=== PATIENT | male | born 1990 | race American Indian/Alaskan Native ===

== ENCOUNTER 2022-08-05 10:08 | Emergency (ER) | payer BC ==
[2022-08-05] MEDS ORDERED: Aspirin 81 MG Tab.Chew PO ONE (10:12)
[2022-08-05] MEDS ORDERED: Sodium Chloride 0.9% 1,000 ML IV ONE (10:12)
[2022-08-05] MEDS ORDERED: LORazepam 2 MG/ML SDV IVPUSH ONE (10:27)
[2022-08-05] MEDS ORDERED: Morphine 4 MG/ML Syringe IVPUSH ONE (11:12)
[2022-08-05 11:14] LABS: BLOOD UREA NITROGEN,BUN 15 mg/dL (7.0-18.0); CARBON DIOXIDE,CO2 22.6 mmol/L (21.0-32.0); CHLORIDE,CL 102 mmol/L (98-107); GLUCOSE RANDOM 171 mg/dL (74-106); POTASSIUM,K 4.1 mmol/L (3.5-5.1); SODIUM,NA 138 mmol/L (136-148)
[2022-08-05 11:23] LABS: ESTIMATED GFR 118 mL/min (>60)
[2022-08-05 12:50] LABS: LIPASE 157 U/L (73-393)
[2022-08-05 13:25] LABS: CORONAVIRUS COVID-19 NAA NEGATIVE (NEGATIVE); INFLUENZA A NAA NEGATIVE (NEGATIVE); INFLUENZA B NAA NEGATIVE (NEGATIVE)
[2022-08-05 13:36] VITALS: BP 122/71; PULSE 74
== END 2022-08-05 13:55 | disposition home or self-care (01) ==
LOC: MW.ED 10:08
DX: R07.89 Other chest pain (principal); R06.02 Shortness of breath; E11.9 Type 2 diabetes mellitus without complications; Z20.822 Contact with and (suspected) exposure to COVID-19
CPT/HCPCS: 0240U; 36415; 71045; 80053; 83690; 84484; 85025; 85379; 85610; 85730; 86140; 93005; 96361; 96374; 96375; 99285; A9270; J2060; J2270; J7030

== ENCOUNTER 2022-09-14 07:13 | Emergency (ER) | payer BC ==
[2022-09-14] MEDS ORDERED: Sodium Chloride 0.9% 10 ML Syringe FLUSH PRN (07:26)
[2022-09-14] MEDS ORDERED: Sodium Chloride 0.9% 2.5 ML Syringe FLUSH PRN (07:26)
[2022-09-14] MEDS ORDERED: Ondansetron 4 MG/2 ML SDV IVPUSH ONE (07:26)
[2022-09-14] MEDS ORDERED: Morphine 4 MG/ML Syringe IVPUSH ONE (07:26)
[2022-09-14 07:52] LABS: CARBON DIOXIDE,CO2 26.4 mmol/L (21.0-32.0); POTASSIUM,K 3.9 mmol/L (3.5-5.1)
[2022-09-14] MEDS ORDERED: HYDROmorphone 1 MG/ML Syringe IVPUSH ONE (08:04)
[2022-09-14] MEDS ORDERED: Iopamidol 755 MG/ML 500 ML Multipack Bottle IVPUSH STA (08:41)
[2022-09-14] MEDS ORDERED: Ketorolac 30 MG/ML SDV IVPUSH ONE (10:59)
[2022-09-14 11:17] VITALS: BP 140/89; PULSE 85
== END 2022-09-14 11:18 | disposition home or self-care (01) ==
LOC: MW.ED 07:13
DX: R07.9 Chest pain, unspecified (principal); I10 Essential (primary) hypertension; E11.9 Type 2 diabetes mellitus without complications; Z79.82 Long term (current) use of aspirin; Z79.899 Other long term (current) drug therapy
CPT/HCPCS: 36415; 70450; 70496; 70498; 71045; 80053; 84484; 85025; 93005; 96374; 96375; 99285; J1170; J1885; J2270; J2405; J3490; Q9967

== ENCOUNTER 2023-03-29 15:21 | Emergency (ER) | payer BC, OTHER ==
[2023-03-29] MEDS ORDERED: Aluminum Hydroxide/Magnesium Hydroxide/Simethicone XS Susp 30 ML Cup PO ONE (16:03)
[2023-03-29] MEDS ORDERED: Famotidine 20 MG/2 ML SDV IVPUSH ONE (16:03)
[2023-03-29] MEDS ORDERED: Pantoprazole 40 MG in Sodium Chloride 0.9% 10 ML IVPUSH ONE (16:03)
[2023-03-29 16:08] LABS: BASOPHILS PERCENT AUTO 0.4 % (0.0-1.5); EOSINOPHILS ABSOLUTE AUTO 0.2 K/uL (0.0-0.7); HEMATOCRIT 44.9 % (38.0-50.0); HEMOGLOBIN 15.6 g/dL (13.0-17.0); LYMPHOCYTES PERCENT AUTO 25.1 % (16.0-40.0); MEAN CORPUSCULAR HEMOGLOBIN 28.4 pg (27.0-32.0); MEAN CORPUSCULAR HGB CONC 34.7 g/dL (31.0-37.0); MEAN CORPUSCULAR VOLUME 81.6 fL (80.0-98.0); MONOCYTES ABSOLUTE AUTO 0.6 K/uL (0.0-0.8); MONOCYTES PERCENT AUTO 6.9 % (0.0-15.0); NEUTROPHILS ABSOLUTE AUTO 5.4 K/uL (1.4-5.7); NEUTROPHILS PERCENT AUTO 65.6 % (48.0-80.0); NRBC ABSOLUTE 0 K/uL; PLATELET COUNT,PLT 214 K/uL (150-400); WHITE BLOOD CELL COUNT,WBC 8.14 K/uL (4.0-11.0)
[2023-03-29 16:44] LABS: ALANINE AMINOTRANSFERASE,ALT 43 IU/L (14-63); ALBUMIN 3.6 g/dL (3.4-5.0); ALKALINE PHOSPHATASE 86 U/L (46-116); ASPARTATE AMNIOTRANSFERASE,AST 14 IU/L (15-37); BLOOD UREA NITROGEN,BUN 18 mg/dL (7.0-18.0); CARBON DIOXIDE,CO2 25.4 mmol/L (21.0-32.0); CHLORIDE,CL 103 mmol/L (98-107); CREATININE 0.9 mg/dL (0.8-1.3); EST CRCL DRUG DOSING (CG) 116.11 mL/min; GLUCOSE RANDOM 280 mg/dL (74-106); LIPASE 44 U/L (16-77); POTASSIUM,K 3.7 mmol/L (3.5-5.1); PROTEIN TOTAL,TP 7.3 g/dL (6.4-8.2); SODIUM,NA 137 mmol/L (136-148)
[2023-03-29 16:45] LABS: ESTIMATED GFR 118 mL/min (>60)
[2023-03-29 19:16] VITALS: BP 139/89; PULSE 87
== END 2023-03-29 17:22 | disposition home or self-care (01) ==
LOC: MW.ED 15:21
DX: R07.9 Chest pain, unspecified (principal); I10 Essential (primary) hypertension; E11.9 Type 2 diabetes mellitus without complications; Z79.899 Other long term (current) drug therapy
CPT/HCPCS: 36415; 71045; 80053; 83690; 84484; 85025; 85379; 93005; 96374; 96375; 99285; A9270; C9113; J3490; 93010; 99284

== ENCOUNTER 2023-04-02 07:48 | Emergency (ER) | payer BC, OTHER ==
[2023-04-02] MEDS ORDERED: Aspirin 81 MG Tab.Chew PO ONE (07:56)
[2023-04-02] MEDS ORDERED: Ondansetron 4 MG/2 ML SDV IVPUSH ONE (07:56)
[2023-04-02] MEDS ORDERED: Sodium Chloride 0.9% 2.5 ML Syringe FLUSH PRN (07:56)
[2023-04-02] MEDS ORDERED: Sodium Chloride 0.9% 10 ML Syringe FLUSH PRN (07:56)
[2023-04-02] MEDS: Nitroglycerin 0.4 MG Tab.SL SL PRN ×2 (08:07→08:16)
[2023-04-02 08:24] LABS: BASOPHILS PERCENT AUTO 0.3 % (0.0-1.5); EOSINOPHILS ABSOLUTE AUTO 0.2 K/uL (0.0-0.7); EOSINOPHILS PERCENT AUTO 3.2 % (0.0-7.0); HEMATOCRIT 46.9 % (38.0-50.0); HEMOGLOBIN 16.8 g/dL (13.0-17.0); LYMPHOCYTES PERCENT AUTO 28.3 % (16.0-40.0); MEAN CORPUSCULAR HEMOGLOBIN 29.4 pg (27.0-32.0); MEAN CORPUSCULAR HGB CONC 35.8 g/dL (31.0-37.0); MONOCYTES ABSOLUTE AUTO 0.6 K/uL (0.0-0.8); MONOCYTES PERCENT AUTO 7.8 % (0.0-15.0); NEUTROPHILS ABSOLUTE AUTO 4.4 K/uL (1.4-5.7); NEUTROPHILS PERCENT AUTO 60.4 % (48.0-80.0); NRBC ABSOLUTE 0 K/uL; PLATELET COUNT,PLT 208 K/uL (150-400); RED BLOOD CELL COUNT 5.72 M/uL (4.50-5.90); WHITE BLOOD CELL COUNT,WBC 7.22 K/uL (4.0-11.0)
[2023-04-02 08:35] LABS: D-DIMER QUANTITATIVE 0.22 mg/L FEU (0.00-0.50); INR 0.93 (0.86-1.11); PTT,PARTIAL THROMBOPLSTIN TIME 26.5 SEC (23.9-30.7)
[2023-04-02 08:55] LABS: A/G RATIO 0.9 (0.9-1.6); ALANINE AMINOTRANSFERASE,ALT 63 IU/L (14-63); ALBUMIN 3.7 g/dL (3.4-5.0); ALKALINE PHOSPHATASE 94 U/L (46-116); ASPARTATE AMNIOTRANSFERASE,AST 20 IU/L (15-37); BLOOD UREA NITROGEN,BUN 15 mg/dL (7.0-18.0); CALCIUM 9.5 mg/dL (8.5-10.1); CARBON DIOXIDE,CO2 25.4 mmol/L (21.0-32.0); CHLORIDE,CL 103 mmol/L (98-107); GLUCOSE RANDOM 227 mg/dL (74-106); LIPASE 37 U/L (16-77); MAGNESIUM 1.7 mg/dL (1.8-2.4); POTASSIUM,K 4.2 mmol/L (3.5-5.1); PROTEIN TOTAL,TP 7.6 g/dL (6.4-8.2); SODIUM,NA 139 mmol/L (136-148)
[2023-04-02 08:59] LABS: ESTIMATED GFR 104 mL/min (>60)
[2023-04-02 09:59] LABS: CORONAVIRUS COVID-19 NAA NEGATIVE (NEGATIVE); INFLUENZA A NAA NEGATIVE (NEGATIVE); INFLUENZA B NAA NEGATIVE (NEGATIVE); RESPIRATORY SYNCYTIAL VIR NAA NEGATIVE (NEGATIVE)
[2023-04-02] MEDS ORDERED: Acetaminophen 500 MG Tab PO ONE (10:51)
[2023-04-02 11:56] VITALS: BP 113/64; PULSE 73
== END 2023-04-02 11:55 | disposition home or self-care (01) ==
LOC: MW.ED 07:48
DX: R07.9 Chest pain, unspecified (principal); I10 Essential (primary) hypertension; E11.9 Type 2 diabetes mellitus without complications; M54.9 Dorsalgia, unspecified; E78.00 Pure hypercholesterolemia, unspecified; Z72.0 Tobacco use; Z79.899 Other long term (current) drug therapy; Z20.822 Contact with and (suspected) exposure to COVID-19
CPT/HCPCS: 0241U; 36415; 71046; 80053; 83690; 83735; 83880; 84484; 85025; 85379; 85610; 85730; 93005; 96374; 99285; A9270; J2405; J3490; 93010; 99284

== ENCOUNTER 2024-02-25 07:56 | Emergency (ER) | payer BC, OTHER ==
[2024-02-25 10:10] VITALS: BP 127/82; PULSE 74
== END 2024-02-25 08:55 | disposition home or self-care (01) ==
LOC: MW.ED 07:56
DX: G51.0 Bell's palsy (principal); I10 Essential (primary) hypertension; E11.9 Type 2 diabetes mellitus without complications; Z79.899 Other long term (current) drug therapy; Z75.8 Other problems related to medical facilities and other health care
CPT/HCPCS: 99284

== ENCOUNTER 2024-06-07 07:43 | Emergency (ER) | payer BC, OTHER ==
[2024-06-07] MEDS: Albuterol/Ipratropium 3.0-0.5 MG/3 ML Neb Soln NEB ONE ×2 (07:48→08:02)
[2024-06-07] MEDS: Albuterol/Ipratropium 3.0-0.5 MG/3 ML Neb Soln ONE (08:02)
[2024-06-07] MEDS: Sodium Chloride 0.9% 10 ML Syringe FLUSH PRN (08:05)
[2024-06-07] MEDS: Sodium Chloride 0.9% 2.5 ML Syringe FLUSH PRN (08:05)
[2024-06-07] MEDS: methylPREDNISolone Sodium Succinate 125 MG/2 ML SDV IVPUSH ONE (08:05)
[2024-06-07 08:11] LABS: BASOPHILS ABSOLUTE AUTO 0.03 K/uL (0.00-0.20); BASOPHILS PERCENT AUTO 0.4 % (0.0-1.0); EOSINOPHILS ABSOLUTE AUTO 0.15 K/uL (0.00-0.45); EOSINOPHILS PERCENT AUTO 1.8 % (0.0-6.0); HEMATOCRIT 47.8 % (42.0-52.0); HEMOGLOBIN 16.4 g/dL (14.0-18.0); IMMATURE GRAN ABSOLUTE AUTO 0.09 K/uL (0.00-0.05); IMMATURE GRAN PERCENT AUTO 1.1 % (0.0-0.4); LYMPHOCYTES ABSOLUTE AUTO 2.72 K/uL (1.00-4.80); LYMPHOCYTES PERCENT AUTO 33.5 % (24.0-44.0); MEAN CORPUSCULAR HEMOGLOBIN 28.2 pg (28.0-32.0); MEAN CORPUSCULAR HGB CONC 34.3 g/dL (32.0-36.0); MEAN CORPUSCULAR VOLUME 82.1 fL (83.0-99.0); MEAN PLATELET VOLUME 11.1 fL (9.4-12.4); MONOCYTES ABSOLUTE AUTO 0.61 K/uL (0.00-0.80); MONOCYTES PERCENT AUTO 7.5 % (0.0-8.0); NEUTROPHILS ABSOLUTE AUTO 4.51 K/uL (1.80-7.70); NEUTROPHILS PERCENT AUTO 55.7 % (41.0-71.0); PLATELET COUNT,PLT 223 K/uL (150-400); RED BLOOD CELL COUNT 5.82 M/uL (4.52-5.90); WHITE BLOOD CELL COUNT,WBC 8.11 K/uL (3.9-11.3)
[2024-06-07 08:25] LABS: INR 0.95 (0.86-1.11)
[2024-06-07 08:30] LABS: ALBUMIN 3.8 g/dL (3.4-5.0); BILIRUBIN TOTAL 1.1 mg/dL (0.2-1.0); CALCIUM 9.2 mg/dL (8.5-10.1); CARBON DIOXIDE,CO2 23.3 mmol/L (21.0-32.0); CREATININE 0.9 mg/dL (0.8-1.3); POTASSIUM,K 4.3 mmol/L (3.5-5.1); PROTEIN TOTAL,TP 7.6 g/dL (6.4-8.2)
[2024-06-07 09:02] LABS: CORONAVIRUS COVID-19 NAA NEGATIVE (NEGATIVE); INFLUENZA A NAA NEGATIVE (NEGATIVE); INFLUENZA B NAA NEGATIVE (NEGATIVE); RESPIRATORY SYNCYTIAL VIR NAA NEGATIVE (NEGATIVE)
[2024-06-07] MEDS: Iopamidol 755 MG/ML 500 ML Multipack Bottle IVPUSH STA (10:02)
[2024-06-07 11:21] VITALS: BP 118/72; PULSE 78
== END 2024-06-07 11:20 | disposition home or self-care (01) ==
LOC: MW.ED 07:43
DX: J45.909 Unspecified asthma, uncomplicated (principal); I10 Essential (primary) hypertension; E11.9 Type 2 diabetes mellitus without complications; Z79.899 Other long term (current) drug therapy
CPT/HCPCS: 0241U; 36415; 71045; 74177; 80053; 83690; 84484; 85025; 85379; 85610; 93005; 96374; 99285; J2919; J3490; Q9967; 93010; J7620-GY